=== PATIENT | male | born 1945 | race Caucasian/White ===

== ENCOUNTER 2022-05-31 09:14 | Emergency (ER) | payer OTHER, MEDICARE ==
[2022-05-31] MEDS ORDERED: Sodium Chloride 0.9% 10 ML Syringe FLUSH PRN (09:25)
[2022-05-31 10:09] LABS: ANION GAP 10.8 meq/L (7-15)
[2022-05-31] MEDS ORDERED: Labetalol 20 MG/4 ML Syringe IVPUSH ONE (10:25)
[2022-05-31] MEDS ORDERED: Lidocaine 2% 100 MG/5 ML Syringe IVPUSH ONE (10:43)
[2022-05-31] MEDS ORDERED: Amiodarone 150 MG/3 ML SDV IVPUSH ONE (11:21)
[2022-05-31] MEDS ORDERED: Sodium Chloride 0.9% 1,000 ML IV ONE (11:41)
[2022-05-31 12:38] VITALS: PULSE 69
[2022-05-31 12:39] VITALS: BP 129/85
[2022-05-31 13:15] LABS: CORONAVIRUS COVID-19 NAA NEGATIVE (NEGATIVE); RESPIRATORY SYNCYTIAL VIR NAA NEGATIVE (NEGATIVE)
== END 2022-05-31 13:15 ==
LOC: LL.ED 09:14
DX: R40.20 Unspecified coma (principal); I47.20 Ventricular tachycardia, unspecified; R09.02 Hypoxemia; R56.9 Unspecified convulsions; Z91.048 Other nonmedicinal substance allergy status; Z20.822 Contact with and (suspected) exposure to COVID-19
CPT/HCPCS: 0241U; 36415; 70450; 71045; 80053; 82550; 82947; 83605; 84484; 85025; 93005; 93010; 96361; 96374; 96375; 99284; 99285-25; J0282; J3360; J3490; J7030

== ENCOUNTER 2022-10-15 08:06 | Emergency (ER) | payer OTHER ==
[2022-10-15] MEDS ORDERED: fentaNYL 50 MCG/ML SDV IVPUSH ONE (09:55)
[2022-10-15] MEDS ORDERED: Naloxone 0.4 MG/ML SDV IVPUSH PRN (09:55)
[2022-10-15 09:59] LABS: BASOPHILS ABSOLUTE AUTO 0.01 K/uL (0.00-0.20); BASOPHILS PERCENT AUTO 0.1 % (0.0-2.0); EOSINOPHILS ABSOLUTE AUTO 0.01 K/uL (0.00-0.50); EOSINOPHILS PERCENT AUTO 0.1 % (0.0-5.0); HEMOGLOBIN 11.8 g/dL (13.1-16.8); LYMPHOCYTES PERCENT AUTO 8.4 % (10.0-50.0); MEAN CORPUSCULAR HEMOGLOBIN 30.8 pg (28.2-33.3); MEAN CORPUSCULAR HGB CONC 32.8 g/dL (31.7-36.0); MONOCYTES ABSOLUTE AUTO 0.92 K/uL (0.00-1.00); MONOCYTES PERCENT AUTO 7.7 % (2.0-14.0); NEUTROPHILS PERCENT AUTO 83.7 % (45.0-80.0); PLATELET COUNT,PLT 261 K/uL (150-350); RED BLOOD CELL COUNT 3.83 M/uL (4.33-5.41); RED CELL DISTRIBUTION WIDTH 13.5 % (11.2-14.1); WHITE BLOOD CELL COUNT,WBC 11.9 K/uL (4.0-10.2)
[2022-10-15] MEDS: Sodium Chloride 0.9% 10 ML Syringe FLUSH PRN ×2 (10:09→13:25)
[2022-10-15 10:10] LABS: ALBUMIN 3.4 g/dL (3.4-5.0); ANION GAP 5.4 meq/L (7-15); BILIRUBIN TOTAL 1.1 mg/dL (0.2-1.0); CALCIUM 8.6 mg/dL (8.5-10.1); CARBON DIOXIDE,CO2 29.6 mmol/L (21.0-32.0); CREATININE 0.98 mg/dL (0.51-1.17); EST CRCL DRUG DOSING (CG) 59.66 mL/min; POTASSIUM,K 3.9 mmol/L (3.5-5.1); PROTEIN TOTAL,TP 6.9 g/dL (6.4-8.2)
[2022-10-15 10:15] LABS: INR 1.2; PROTHROMBIN TIME 11.9 SEC (9.0-11.1)
[2022-10-15] MEDS ORDERED: fentaNYL 50 MCG/ML SDV IVPUSH PRN (13:01)
== END 2022-10-15 14:00 ==
LOC: LL.ED 08:06
DX: S72.142A Displaced intertrochanteric fracture of left femur, initial encounter for closed fracture (principal); I10 Essential (primary) hypertension; J44.9 Chronic obstructive pulmonary disease, unspecified; Z91.09 Other allergy status, other than to drugs and biological substances; W18.30XA Fall on same level, unspecified, initial encounter
CPT/HCPCS: 36415; 80053; 85025; 85610; 96374; 96376; 99284-25; J3010; J3490

== ENCOUNTER 2022-11-19 20:18 | Emergency (ER) | payer OTHER, MEDICARE | END 2022-11-19 21:20 | disposition home or self-care (01) | LOC: LL.ED 20:18 | DX: M25.511 Pain in right shoulder (principal); I10 Essential (primary) hypertension; J44.9 Chronic obstructive pulmonary disease, unspecified; Z91.09 Other allergy status, other than to drugs and biological substances; Z79.82 Long term (current) use of aspirin; Z86.73 Personal history of transient ischemic attack (TIA), and cerebral infarction without residual deficits; W07.XXXA Fall from chair, initial encounter | CPT/HCPCS: 99283 ==

== ENCOUNTER 2022-12-17 11:11 | Emergency (ER) | payer OTHER, MEDICARE ==
[2022-12-17 11:22] LABS: BASOPHILS ABSOLUTE AUTO 0.03 K/uL (0.00-0.20); BASOPHILS PERCENT AUTO 0.3 % (0.0-2.0); EOSINOPHILS ABSOLUTE AUTO 0.01 K/uL (0.00-0.50); EOSINOPHILS PERCENT AUTO 0.1 % (0.0-5.0); HEMATOCRIT 43.9 % (39.0-49.0); HEMOGLOBIN 13.9 g/dL (13.1-16.8); LYMPHOCYTES PERCENT AUTO 10.2 % (10.0-50.0); MEAN CORPUSCULAR HEMOGLOBIN 29.6 pg (28.2-33.3); MEAN CORPUSCULAR HGB CONC 31.7 g/dL (31.7-36.0); MEAN CORPUSCULAR VOLUME 93.6 fL (84.0-98.0); MONOCYTES ABSOLUTE AUTO 0.26 K/uL (0.00-1.00); NEUTROPHILS ABSOLUTE AUTO 7.61 K/uL (1.40-7.00); NEUTROPHILS PERCENT AUTO 86.4 % (45.0-80.0); PLATELET COUNT,PLT 266 K/uL (150-350); RED BLOOD CELL COUNT 4.69 M/uL (4.33-5.41); RED CELL DISTRIBUTION WIDTH 13.4 % (11.2-14.1); WHITE BLOOD CELL COUNT,WBC 8.8 K/uL (4.0-10.2)
[2022-12-17 11:28] LABS: ANION GAP 7.7 meq/L (7-15); BLOOD UREA NITROGEN,BUN 12 mg/dL (7-18); CARBON DIOXIDE,CO2 31.3 mmol/L (21.0-32.0); CHLORIDE,CL 104 mmol/L (98-107); CREATININE 0.76 mg/dL (0.51-1.17); GLUCOSE RANDOM 134 mg/dL (70-99); POTASSIUM,K 4.4 mmol/L (3.5-5.1); SODIUM,NA 143 mmol/L (136-145)
[2022-12-17 11:29] LABS: ESTIMATED GFR 93 mL/min (>=60)
[2022-12-17] MEDS ORDERED: levETIRAcetam in NaCl (iso-os) 500 MG in Premix Bag 1 BAG IV ONE ×2 (11:37)
== END 2022-12-17 13:30 ==
LOC: LL.ED 11:11
DX: R09.02 Hypoxemia (principal); G20 Parkinson's disease; I10 Essential (primary) hypertension; E78.00 Pure hypercholesterolemia, unspecified; J44.9 Chronic obstructive pulmonary disease, unspecified; E03.9 Hypothyroidism, unspecified; Z86.73 Personal history of transient ischemic attack (TIA), and cerebral infarction without residual deficits; Z87.891 Personal history of nicotine dependence; Z79.899 Other long term (current) drug therapy; Z91.048 Other nonmedicinal substance allergy status
CPT/HCPCS: 80048; 85025; 96374; 99284; 99284-25; J1953

== ENCOUNTER 2023-03-19 14:47 | Emergency (ER) | payer OTHER, MEDICARE ==
[2023-03-19] MEDS: LORazepam 2 MG/ML SDV IVPUSH ONE (15:02)
[2023-03-19 15:12] LABS: BASOPHILS ABSOLUTE AUTO 0.04 K/uL (0.00-0.20); BASOPHILS PERCENT AUTO 0.5 % (0.0-2.0); EOSINOPHILS ABSOLUTE AUTO 0.22 K/uL (0.00-0.50); EOSINOPHILS PERCENT AUTO 2.6 % (0.0-5.0); HEMATOCRIT 43.6 % (39.0-49.0); LYMPHOCYTES ABSOLUTE AUTO 2.97 K/uL (0.50-3.50); LYMPHOCYTES PERCENT AUTO 34.7 % (10.0-50.0); MEAN CORPUSCULAR HEMOGLOBIN 29.4 pg (28.2-33.3); MEAN CORPUSCULAR HGB CONC 32.1 g/dL (31.7-36.0); MEAN CORPUSCULAR VOLUME 91.6 fL (84.0-98.0); MONOCYTES ABSOLUTE AUTO 0.59 K/uL (0.00-1.00); MONOCYTES PERCENT AUTO 6.9 % (2.0-14.0); NEUTROPHILS ABSOLUTE AUTO 4.73 K/uL (1.40-7.00); NEUTROPHILS PERCENT AUTO 55.3 % (45.0-80.0); PLATELET COUNT,PLT 282 K/uL (150-350); RED BLOOD CELL COUNT 4.76 M/uL (4.33-5.41); RED CELL DISTRIBUTION WIDTH 14.7 % (11.2-14.1); WHITE BLOOD CELL COUNT,WBC 8.6 K/uL (4.0-10.2)
[2023-03-19 15:45] LABS: ALBUMIN 3.5 g/dL (3.4-5.0); CALCIUM 8.6 mg/dL (8.5-10.1); CARBON DIOXIDE,CO2 20.4 mmol/L (21.0-32.0); CREATININE 0.95 mg/dL (0.51-1.17); EST CRCL DRUG DOSING (CG) 65.68 mL/min; POTASSIUM,K 3.6 mmol/L (3.5-5.1); PROTEIN TOTAL,TP 7.7 g/dL (6.4-8.2)
[2023-03-19 15:46] LABS: ANION GAP 23.2 meq/L (7-15)
[2023-03-19] MEDS: Lidocaine 2% HCl 11 ML Jelly Filled Syringe TOP ONE (15:50)
[2023-03-19] MEDS ORDERED: Sodium Chloride 0.9% 10 ML Syringe FLUSH PRN (15:51)
[2023-03-19 16:14] LABS: APPEARANCE,URINE CLEAR; BILIRUBIN,URINE NEGATIVE (NEGATIVE); COLOR,URINE YELLOW; GLUCOSE,URINE NEGATIVE (NEGATIVE); KETONES,URINE TRACE mg/dL (NEGATIVE); LEUKOCYTE ESTERASE,URINE NEGATIVE (NEGATIVE); NITRITE,URINE NEGATIVE (NEGATIVE); OCCULT BLOOD,URINE NEGATIVE (NEGATIVE); PROTEIN,URINE TRACE mg/dL (NEGATIVE); UROBILINOGEN,URINE 0.2 E.U./dL (0.2-1.0)
[2023-03-19 16:32] LABS: BACTERIA,URINE FEW /HPF (NONE TO FEW); EPITHELIAL CELLS,URINE FEW /LPF; HYALINE CASTS,URINE FEW; MUCUS,URINE MODERATE /LPF (NEGATIVE); RBC,URINE 0-5 /HPF; WBC,URINE 0-5 /HPF
[2023-03-19 16:59] LABS: CORONAVIRUS COVID-19 NAA NEGATIVE (NEGATIVE); INFLUENZA A NAA NEGATIVE (NEGATIVE); INFLUENZA B NAA NEGATIVE (NEGATIVE); RESPIRATORY SYNCYTIAL VIR NAA NEGATIVE (NEGATIVE)
[2023-03-19] MEDS: Iopamidol 612 MG/ML 100 ML Bottle IVPUSH STA (16:59)
[2023-03-19] MEDS: levETIRAcetam in NaCl (iso-os) 1,500 MG in Premix Bag 1 BAG IV ONE ×2 (17:19)
[2023-03-19] MEDS: Sodium Chloride 0.9% 1,000 ML IV ONE (17:39)
[2023-03-19] MEDS: LORazepam 2 MG/ML SDV ONE (18:46)
[2023-03-19 19:35] LABS: CALCIUM 8.5 mg/dL (8.5-10.1); CARBON DIOXIDE,CO2 30.5 mmol/L (21.0-32.0); CREATININE 0.87 mg/dL (0.51-1.17); EST CRCL DRUG DOSING (CG) 71.72 mL/min; POTASSIUM,K 3.6 mmol/L (3.5-5.1)
[2023-03-19 19:36] LABS: ANION GAP 12.1 meq/L (7-15)
== END 2023-03-19 20:50 ==
LOC: LL.ED 14:47 → SUPCPDRO 14:47 → LL.ED 20:50
DX: G40.89 Other seizures (principal); I10 Essential (primary) hypertension; E78.00 Pure hypercholesterolemia, unspecified; J44.9 Chronic obstructive pulmonary disease, unspecified; E03.9 Hypothyroidism, unspecified; Z86.73 Personal history of transient ischemic attack (TIA), and cerebral infarction without residual deficits; Z79.82 Long term (current) use of aspirin; Z79.899 Other long term (current) drug therapy; Z91.048 Other nonmedicinal substance allergy status; Z20.822 Contact with and (suspected) exposure to COVID-19
CPT/HCPCS: 0241U; 36415; 51701; 71260; 74018; 80048; 80053; 80177; 81001; 82947; 83605; 83735; 83880; 84443; 84484; 85025; 85379; 94761; 96361; 96374; 96375; 99284; 99285-25; A9270-GY; J1953; J2060; J3360; J7030; Q9967

== ENCOUNTER 2024-06-03 08:23 | Emergency (ER) | payer MEDICARE, OTHER ==
[2024-06-03 08:52] LABS: BASOPHILS ABSOLUTE AUTO 0.03 K/uL (0.00-0.20); BASOPHILS PERCENT AUTO 0.4 % (0.0-2.0); EOSINOPHILS PERCENT AUTO 2.7 % (0.0-5.0); HEMATOCRIT 40.7 % (39.0-49.0); HEMOGLOBIN 13.1 g/dL (13.1-16.8); IMMATURE GRAN ABSOLUTE AUTO 0.01 10^3/uL (0.00-0.04); IMMATURE GRAN PERCENT AUTO 0.1 % (0.0-0.4); LYMPHOCYTES ABSOLUTE AUTO 1.27 K/uL (0.50-3.50); LYMPHOCYTES PERCENT AUTO 16.9 % (10.0-50.0); MEAN CORPUSCULAR HEMOGLOBIN 30.7 pg (28.2-33.3); MEAN CORPUSCULAR HGB CONC 32.2 g/dL (31.7-36.0); MEAN CORPUSCULAR VOLUME 95.3 fL (84.0-98.0); MONOCYTES ABSOLUTE AUTO 0.36 K/uL (0.00-1.00); MONOCYTES PERCENT AUTO 4.8 % (2.0-14.0); NEUTROPHILS ABSOLUTE AUTO 5.66 K/uL (1.40-7.00); NEUTROPHILS PERCENT AUTO 75.1 % (45.0-80.0); PLATELET COUNT,PLT 266 K/uL (150-350); RED BLOOD CELL COUNT 4.27 M/uL (4.33-5.41); RED CELL DISTRIBUTION WIDTH 12.8 % (11.2-14.1); WHITE BLOOD CELL COUNT,WBC 7.5 K/uL (4.0-10.2)
[2024-06-03 08:57] LABS: APPEARANCE,URINE CLEAR; BILIRUBIN,URINE NEGATIVE (NEGATIVE); COLOR,URINE YELLOW; GLUCOSE,URINE NEGATIVE (NEGATIVE); KETONES,URINE NEGATIVE (NEGATIVE); LEUKOCYTE ESTERASE,URINE NEGATIVE (NEGATIVE); NITRITE,URINE NEGATIVE (NEGATIVE); OCCULT BLOOD,URINE TRACE-INTACT (NEGATIVE); PH,URINE 5.5 (5.0-9.0); PROTEIN,URINE 100 mg/dL (NEGATIVE); UROBILINOGEN,URINE 0.2 E.U./dL (0.2-1.0)
[2024-06-03 09:15] LABS: GRANULAR CASTS,URINE FEW; HYALINE CASTS,URINE MANY
[2024-06-03 09:17] LABS: EPITHELIAL CELLS,URINE MANY /LPF; RBC,URINE 0-5 /HPF; WBC,URINE 0-5 /HPF
[2024-06-03 09:19] LABS: ALANINE AMINOTRANSFERASE,ALT 15 U/L (12-78); ALBUMIN 3.3 g/dL (3.4-5.0); ALKALINE PHOSPHATASE 76 IU/L (46-116); ASPARTATE AMNIOTRANSFERASE,AST 15 U/L (15-37); BILIRUBIN TOTAL 0.6 mg/dL (0.2-1.0); BLOOD UREA NITROGEN,BUN 11 mg/dL (7-18); CALCIUM 8.5 mg/dL (8.5-10.1); CARBON DIOXIDE,CO2 32.5 mmol/L (21.0-32.0); CHLORIDE,CL 103 mmol/L (98-107); CREATININE 0.95 mg/dL (0.51-1.17); GLUCOSE RANDOM 170 mg/dL (70-99); POTASSIUM,K 3.9 mmol/L (3.5-5.1); PROTEIN TOTAL,TP 7.4 g/dL (6.4-8.2); SODIUM,NA 144 mmol/L (136-145)
[2024-06-03 09:20] LABS: ANION GAP 12.4 meq/L (7-15); ESTIMATED GFR 82 mL/min (>=60)
[2024-06-03] MEDS: levETIRAcetam 500 MG/5 ML SDV IVPUSH ONE (11:48)
[2024-06-03] MEDS: Sodium Chloride 0.9% 10 ML Syringe FLUSH PRN (11:48)
[2024-06-06 07:46] LABS: KEPPRA 31 ug/mL (10-40)
== END 2024-06-03 16:30 ==
LOC: LL.ED 08:23
DX: G40.909 Epilepsy, unspecified, not intractable, without status epilepticus (principal); I10 Essential (primary) hypertension; J44.9 Chronic obstructive pulmonary disease, unspecified; E03.9 Hypothyroidism, unspecified; Z79.899 Other long term (current) drug therapy; Z79.890 Hormone replacement therapy; Z79.82 Long term (current) use of aspirin; Z79.2 Long term (current) use of antibiotics; Z91.048 Other nonmedicinal substance allergy status
CPT/HCPCS: 36415; 51701; 80053; 80177; 81001; 82947; 83735; 85025; 96374; 99284; J1953